=== PATIENT | female | born 1945 | race Two or more races ===

== ENCOUNTER 2016-12-30 17:21 | Emergency (ER) | payer SELFPAY ==
[~2016-12-30 17:21] MED LIST: PHENERGAN25 MG PO
== END 2016-12-30 18:34 | disposition home or self-care (01) ==
LOC: CFTX 17:21 → CED 17:21 → CFTX 18:28
DX: S05.02XA Injury of conjunctiva and corneal abrasion without foreign body, left eye, initial encounter (principal); S05.01XA Injury of conjunctiva and corneal abrasion without foreign body, right eye, initial encounter; E11.9 Type 2 diabetes mellitus without complications; I10 Essential (primary) hypertension; W45.8XXA Other foreign body or object entering through skin, initial encounter
CPT/HCPCS: 82947; 99283